=== PATIENT | female | born 1995 | race Caucasian/White ===

== ENCOUNTER 2016-07-22 13:38 | Emergency (ER) | payer OTHER ==
[2016-07-22] MEDS ORDERED: IBUPROFEN 400 MG TABLET PO ONE (14:19)
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
--- NOTE | 2016-07-26 14:29 | RADIOLOGY REPORT ---
DATE: 07/22/2016. EXAM: RIGHT KNEE. HISTORY: Knee pain. TECHNIQUE: Four views of the right knee. COMPARISON: 10/19/2012 right knee. ENCOUNTER: Initial. FINDINGS: Negative for fracture or dislocation. The soft tissues are unremarkable. Joint spaces are preserved. IMPRESSION: NEGATIVE EXAMINATION. JOB NUMBER: [id number] MTDD
== END 2016-07-22 15:35 | disposition home or self-care (01) ==
LOC: ER 13:38
DX: S80.01XA Contusion of right knee, initial encounter (principal); W01.198A Fall on same level from slipping, tripping and stumbling with subsequent striking against other object, initial encounter
CPT/HCPCS: 99283

== ENCOUNTER 2017-05-23 14:23 | Emergency (ER) | payer OTHER ==
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
[2017-05-23] MEDS: KETOROLAC 30 MG/ML VIAL IVP ONE (15:00)
[2017-05-23] MEDS: 0.9 % SODIUM CHLORIDE 1000ML 1,000 ML IV PRN (15:00)
[2017-05-23 15:09] LABS: BASO % 0.5 % (0-6); EOS % 1.5 % (0-6); GRAN % 60.1 % (47-80); HEMATOCRIT 38.1 % (35.0-47.0); LYMPH % 27.8 % (16-45); MEAN CELL VOLUME 85.8 fl (81-97); MEAN CORPUSCULAR HGB CONC 31.5 g/dl (32-36); MEAN PLATELET VOLUME 11.2 fl (7.4-10.4); MONO % 10.1 % (0-9); PLATELET COUNT 314 K/uL (130-400); RED BLOOD COUNT 4.44 M/uL (3.80-5.40); RED CELL DISTRIBUTION WIDTH 14.1 % (11.5-14.5); URINE APPEARANCE CLEAR; URINE BILIRUBIN NEGATIVE (NEGATIVE); URINE BLOOD TRACE-I (NEGATIVE); URINE COLOR YELLOW; URINE GLUCOSE (UA) NEGATIVE (NEGATIVE); URINE KETONE NEGATIVE (NEGATIVE); URINE LEUKOCYTE ESTERASE NEGATIVE (NEGATIVE); URINE NITRITE NEGATIVE (NEGATIVE); URINE PROTEIN NEGATIVE (NEGATIVE)
[2017-05-23 15:13] LABS: HCG,QUALITATIVE URINE NEGATIVE (NEGATIVE); URINE RBC 0 - 2 (NONE SEEN); URINE WBC NONE SEEN (0-2/hpf)
[2017-05-23 15:26] LABS: BLOOD UREA NITROGEN 9 mg/dL (6-20); CREATININE 0.7 mg/dL (0.5-0.9); EST GLOMERULAR FILTRATION RATE > 60 mL/min
[2017-05-23 15:28] LABS: GLUCOSE,RANDOM 95 mg/dL (74-109)
--- NOTE | 2017-05-24 09:42 | CT SCAN REPORT ---
EXAM: CT OF THE ABDOMEN AND PELVIS WITHOUT CONTRAST HISTORY: RIGHT FLANK PAIN FOR SIX DAYS. TECHNIQUE: Axial CT scan of the abdomen and pelvis was performed without oral or IV contrast. Comparison: None. FINDINGS: There are multiple tiny calcifications within the right kidney consistent with tiny currently nonobstructing intrarenal calculi. None seen on the left. No definite hydronephrosis or hydroureter seen on either side. There is a single small calcification in the right side of the mid pelvis. The exact relationship of the right ureter to the small calcification is difficult to assess as the right ureter itself is difficult to confidently identify in its nondilated state, but I suspect this is non-ureteral in nature and may actually be the tip of the appendix with a tiny calcified appendicolith or a small vascular calcification. No left sided ureteral calculus identified and no bladder calculus evident. No calcified gallstones are seen within the gallbladder. Evaluation of the bowel and viscera are very limited without oral or IV contrast. Given this limitation, no definite hepatic, splenic, adrenal, pancreatic, or renal mass identified. At least of a portion of the appendix is probably visualized as a normal caliber structure containing some air and the tiny calcification in the right side of the pelvis as mentioned previously may potentially be within the appendix although could also be a small vascular calcification, but felt unlikely to be ureteral in nature. No free intraperitoneal air or free intraperitoneal fluid identified. IMPRESSION: 1. MULTIPLE TINY CURRENTLY NONOBSTRUCTING INTRARENAL CALCULI ON THE RIGHT. 2. NO HYDRONEPHROSIS OR HYDROURETER SEEN. TINY RIGHT SIDED PELVIC CALCIFICATION IS OF UNCERTAIN RELATIONSHIP TO THE RIGHT URETER WITH THE RIGHT URETER VERY DIFFICULT TO CONFIDENTLY IDENTIFY IN ITS NONDILATED STATE AT THIS LEVEL, BUT I SUSPECT THIS IS NON-URETERAL IN NATURE, PERHAPS A TINY CALCIFIED APPENDICOLITH OR VASCULAR CALCIFICATION. 3. NO APPENDICITIS EVIDENT. NO FREE AIR OR FREE FLUID SEEN. JOB NUMBER: [id number] MTDD
[2017-05-24 23:46] LABS: GC SPECIMEN TYPE Cervix
== END 2017-05-23 17:04 | disposition home or self-care (01) ==
LOC: ER 14:23
DX: K29.00 Acute gastritis without bleeding (principal); R10.11 Right upper quadrant pain
CPT/HCPCS: 74176; 80048; 81001; 81025; 85025; 87210; 96374; 99284; J1885

== ENCOUNTER 2018-05-21 10:52 | Emergency (ER) | payer BC, OTHER ==
[2018-05-21] MEDS ORDERED: KETOROLAC 30 MG/ML VIAL IVP ONE (11:23)
[2018-05-21 11:24] LABS: URINE APPEARANCE CLEAR; URINE BILIRUBIN NEGATIVE (NEGATIVE); URINE BLOOD LARGE (NEGATIVE); URINE COLOR YELLOW; URINE GLUCOSE (UA) NEGATIVE (NEGATIVE); URINE KETONE NEGATIVE (NEGATIVE); URINE LEUKOCYTE ESTERASE SMALL (NEGATIVE); URINE NITRITE NEGATIVE (NEGATIVE); URINE UROBILINOGEN 0.2 E.U./dL (0.20 - 1.00)
[2018-05-21 11:25] LABS: HCG,QUALITATIVE URINE NEGATIVE (NEGATIVE)
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
[2018-05-21 11:31] LABS: URINE RBC 16 - 25 (NONE SEEN); URINE WBC >50 (0-2/hpf)
[2018-05-21 11:32] LABS: URINE BACTERIA 2+
[2018-05-21 11:33] LABS: BASO % 0.3 % (0-6); EOS % 1.4 % (0-6); GRAN % 75.8 % (47-80); HEMATOCRIT 41.6 % (35.0-47.0); HEMOGLOBIN 13.4 gm/dl (11.6-16.0); LYMPH % 17.4 % (16-45); MEAN CELL VOLUME 87.4 fl (81-97); MEAN CORPUSCULAR HEMOGLOBIN 28.2 pg (27-33); MEAN CORPUSCULAR HGB CONC 32.2 g/dl (32-36); MONO % 5.1 % (0-9); PLATELET COUNT 310 K/uL (130-400); RED BLOOD COUNT 4.76 M/uL (3.80-5.40); RED CELL DISTRIBUTION WIDTH 14.1 % (11.5-14.5); WHITE BLOOD COUNT W/O DIFF 11.2 K/uL (4.2-12.2)
[2018-05-21 11:43] LABS: BLOOD UREA NITROGEN 11 mg/dL (6-20); CREATININE 0.6 mg/dL (0.5-0.9); EST GLOMERULAR FILTRATION RATE > 60 mL/min
[2018-05-21 11:46] LABS: GLUCOSE,RANDOM 89 mg/dL (74-109)
--- NOTE | 2018-05-22 09:45 | CT SCAN REPORT ---
EXAM: CT OF THE ABDOMEN AND PELVIS WITHOUT CONTRAST HISTORY: PAIN. TECHNIQUE: Sequential axial images were obtained from the diaphragms through the ischiorectal fossa without intravenous or oral contrast administration. FINDINGS: The visualized lung bases appear normal. The nonopacified liver, gallbladder, pancreas, and spleen appear normal. The adrenal glands and kidneys appear normal. There are nonobstructing calculi in the right kidney measuring 2 mm in maximal diameter. The small bowel appears normal. The urinary bladder appears normal. The uterus and adnexal structures appear normal. The appendix is not definitively identified, however, there are no CT findings suggestive of acute appendicitis. The osseous structures are normal. IMPRESSION: NO ACUTE ABDOMINAL OR PELVIC DISEASE PROCESS. JOB NUMBER: [id number] [facility]
== END 2018-05-21 12:55 | disposition home or self-care (01) ==
LOC: ER 10:52
DX: N30.00 Acute cystitis without hematuria (principal); R10.31 Right lower quadrant pain; Z87.442 Personal history of urinary calculi
CPT/HCPCS: 74176; 80048; 81001; 81025; 85025; 96374; 99284; J1885